=== PATIENT | female | born 1995 | race Asian ===

== ENCOUNTER 2022-02-12 00:50 | Emergency (ER) | payer SELFPAY ==
[~2022-02-12] VITALS: Ht 154.9 cm; Wt 40.4 kg
[2022-02-12 02:16] LABS: Urine Bacteria FEW /hpf (None Seen); Urine Blood 1+ /uL (Negative); Urine Specific Gravity 1.011 (1.001-1.035); Urine WBC 59 /hpf (0 - 5)
[2022-02-12 02:52] LABS: Basophils # (auto) 0 10 ^3/uL (0-0.2); Basophils % (auto) 0.2 % (0.0-2.0); Eosinophils # (auto) 0 10 ^3/uL (0-0.8); Hemoglobin 13.8 g/dL (12.2-16.2); Lymphocytes # (auto) 1.2 10 ^3/uL (0.4-5.4); Lymphocytes % (auto) 11.2 % (10.0-50.0); Mean Corpuscular Hemoglobin 27.8 pg (28.0-32.0); Mean Corpuscular Hgb Conc. 32.7 g/dL (32.0-36.0); Mean Corpuscular Volume 84.9 fL (80.0-100.0); Monocytes # (auto) 0.6 10 ^3/uL (0-1.3); Monocytes % (auto) 5.8 % (0.0-12.0); Neutrophils # (auto) 9.1 10 ^3/uL (1.6-8.6); Neutrophils % (auto) 82.8 % (37.0-80.0); Red Blood Cells 4.95 10^6/uL (4.0-5.20); Red Cell Distribution Width 13.9 % (11.8-14.3)
[2022-02-12 03:09] LABS: Albumin 3.5 g/dL (3.4-5.0); Calcium 8.6 mg/dL (8.5-10.1); Potassium 3.7 mmol/L (3.5-5.1)
[2022-02-12 03:11] LABS: BUN/Creatinine Ratio 14.8
[2022-02-12 03:14] LABS: Bilirubin, Total 0.2 mg/dL (0.2-1.0); Total Protein 8.1 g/dL (6.4-8.2)
[2022-02-12 03:42] LABS: INR 1.07 (0.9-1.15); Partial Thromboplastin Time 38.6 sec (23.6-33.0)
[2022-02-12] MEDS ORDERED: SODIUM CHLORIDE 0.9% 1,000 ML IV ONE (07:30)
[2022-02-12] MEDS ORDERED: cefTRIAXone 1GM/50ML D5W 50 ML IV ONE (11:30)
[2022-02-12] MEDS ORDERED: IOHEXOL 350 MG/ML 100ML IJ ONE (11:38)
[2022-02-12] MEDS ORDERED: NITR-87 PO (14:12)
[2022-02-12 14:42] VITALS: BP 102/66
== END 2022-02-12 14:44 | disposition home or self-care (01) ==
LOC: ER 00:50
DX: B34.9 Viral infection, unspecified (principal); N39.0 Urinary tract infection, site not specified; R79.1 Abnormal coagulation profile
CPT/HCPCS: 36415; 71045; 71275; 80053; 81001; 83605; 85025; 85379; 85384; 85610; 85730; 87040; 87086; 96361; 96365; 96366; 99285; J0696; J7030; Q9967